=== PATIENT | male | born 1990 | race Caucasian/White ===

== ENCOUNTER 2024-11-11 18:38 | Emergency (ER) | payer SELFPAY ==
[~2024-11-11] VITALS: Ht 175.3 cm; Wt 77.0 kg
[2024-11-11 18:50] VITALS: BP 140/76; PULSE 86; RESP 18; TEMP 98.4; O2SAT 98
== END 2024-11-11 21:10 | disposition left against medical advice (07) ==
LOC: ER 18:38
DX: R51.9 Headache, unspecified (principal); Z53.21 Procedure and treatment not carried out due to patient leaving prior to being seen by health care provider